=== PATIENT | female | born 1990 | race Caucasian/White ===

== ENCOUNTER 2018-01-24 12:29 | Emergency (ER) | payer OTHER ==
[~2018-01-24] VITALS: Ht 157.5 cm; Wt 85.7 kg
[2018-01-24] MEDS ORDERED: MEDROL DOSEPAK4 MG PO (13:38)
[2018-01-24 13:59] VITALS: BP 112/80
== END 2018-01-24 13:59 | disposition home or self-care (01) ==
LOC: EME 12:29
DX: M54.16 Radiculopathy, lumbar region (principal); G89.29 Other chronic pain; F17.200 Nicotine dependence, unspecified, uncomplicated
CPT/HCPCS: 99281; 99283; J1100

== ENCOUNTER 2018-03-16 10:38 | Emergency (ER) | payer OTHER ==
[~2018-03-16] VITALS: Ht 157.5 cm; Wt 87.7 kg
[~2018-03-16 10:38] MED LIST: MEDROL DOSEPAK4 MG PO
[2018-03-16 13:35] LABS: CHLORIDE 108 mEq/L (99-109); POTASSIUM 4.4 mEq/L (3.7-5.4); SODIUM 139 mEq/L (136-147)
[2018-03-16 13:36] LABS: GLUCOSE 88 mg/dL (70-99)
[2018-03-16 13:40] LABS: CREATININE 0.7 mg/dL (0.6-1.3); GFR ESTIMATE (CALCULATED) > 59 mL/min/
[2018-03-16 13:41] LABS: UREA NITROGEN (BUN) 15 mg/dL (9-23)
[2018-03-16 13:48] LABS: QUANTITATIVE HCG < 4.0 MIU/ML
[2018-03-16] MEDS ORDERED: FIORICET 50-301 EAC1 PO (15:05)
[2018-03-16 15:09] VITALS: BP 120/88
== END 2018-03-16 15:19 | disposition home or self-care (01) ==
LOC: EME 10:38
PROVIDERS: Nurse Practitioner Family
DX: R51 Headache (principal); R11.0 Nausea; H02.9 Unspecified disorder of eyelid; Z86.69 Personal history of other diseases of the nervous system and sense organs; J45.909 Unspecified asthma, uncomplicated; F17.200 Nicotine dependence, unspecified, uncomplicated
CPT/HCPCS: 70450; 70480; 80048; 84702; 85027; 99281; 99284; J0780; J1100; J1885